=== PATIENT | male | born 1995 ===

== ENCOUNTER 2019-04-23 12:28 | Emergency (ER) | payer SELFPAY ==
[~2019-04-23] VITALS: Ht 177.8 cm; Wt 52.2 kg
[~2019-04-23 12:28] MED LIST: Cleocin HCl150 MG PO; MAGIC MOUTHWASH; Veetids 500500 MG PO
[2019-04-23 13:05] LABS: Calcium, Ionized (POC) 1.15 mmol/L (1.10-1.46); Chloride (POC) 98 mmol/L (98-108); Creatinine (POC) 0.8 mg/dL (0.8-1.3); Glucose (ISTAT POC) 82 mg/dL (70-99); Potassium (POC) 4.6 mmol/L (3.5-5.5); Sodium (POC) 140 mmol/L (135-148); Total CO2 (POC) 30 mmol/L (21-32)
== END 2019-04-23 14:42 | disposition home or self-care (01) ==
LOC: ER 12:28
PROVIDERS: Emergency Medicine
DX: T40.1X1A Poisoning by heroin, accidental (unintentional), initial encounter (principal); F17.210 Nicotine dependence, cigarettes, uncomplicated
CPT/HCPCS: 80047; 85014; 93005; 93010; 96360; 99284-25; J7030